=== PATIENT | female | born 1985 | race American Indian/Alaskan Native ===

== ENCOUNTER 2016-11-25 15:08 | Emergency (ER) | payer SELFPAY ==
[2016-11-25 16:49] LABS: Bilirubin,Urine NEG (Negative); Blood,Urine NEG (Negative); Ketones,Urine NEG (Negative); Leukocyte Esterase,Urine NEG (Negative); Mucus,Urine 2+ /HPF; Nitrite,Urine NEG (Negative); Protein,Urine <15 mg/dL mg/dL (Negative); RBC,Urine < 1.0 /HPF (0.0-6.0); Urobilinogen,Urine < 2.0 mg/dL (<2.0)
[2016-11-25 16:52] LABS: Basophils % (Auto) 0.7 % (0.0-1.8); Eosinophils % (Auto) 1.2 % (0.0-4.3); Hemoglobin 13.6 gm/dl (10.1-14.3); Mean Corpuscular HGB Conc 33 % (30-34); Mean Corpuscular Hemoglobin 30 pg (28-32); Mean Corpuscular Volume 89 fl (79-97); Platelet Count 217 K/mm3 (140-440); Red Blood Count 4.62 M/mm3 (3.65-5.03); Red Cell Distribution Width 12.7 % (13.2-15.2); White Blood Count 9.5 K/mm3 (4.5-11.0)
[2016-11-25 16:53] LABS: Alanine Aminotransferase 14 units/L (7-56); Albumin 4.4 g/dL (3.9-5); Albumin/Globulin Ratio 1.4 %; Alkaline Phosphatase 58 units/L (35-129); Anion Gap 21 mmol/L; Blood Urea Nitrogen 14 mg/dL (7-17); Calcium 9.4 mg/dL (8.4-10.2); Carbon Dioxide 22 mmol/L (22-30); Chloride 100.2 mmol/L (98-107); Glucose 86 mg/dL (65-100); Lipase 25 units/L (13-60); Potassium 3.8 mmol/L (3.6-5.0); Sodium 139 mmol/L (137-145); Total Protein 7.5 g/dL (6.3-8.2)
--- NOTE | 2016-11-25 19:49 | Emergency Department Report ---
HPI - General Chief Complaint: Abdominal Pain Time Seen by Provider: 11/25/16 19:19 - HPI HPI: 31-year-old female presents to the ED complaining of right lower sided abdominal pain U 1 day. Patient states that yesterday she started to feel vaginal sharp, throbbing pain on her right lower abdomen. Patient states she had one episode of vomiting yesterday. Patient describes the pain as nonradiating low-cholesterol right lower quadrant. Patient states she is able to eat appropriately and drinking fluids with no problems. She denies fever assess shows sinus nausea/vaginal bleeding, vaginal discharge, dysuria, diarrhea or constipation ED Past Medical Hx - Past Medical History Previous Medical History?: Yes - Surgical History Past Surgical History?: Yes Hx Cholecystectomy: Yes Additional Surgical History: - Social History Smoking Status: Never Smoker Substance Use Type: None - Medications Home Medications: Home Medications Medication Instructions Recorded Confirmed Last Taken Type HYDROcodone/APAP 5-325 [[place] 1 each PO Q6HR PRN #12 tablet 11/25/16 Unknown Rx 5/325] Ibuprofen [Motrin] 800 mg PO Q8HR PRN #30 tablet 11/25/16 Unknown Rx ED Review of Systems ROS: Stated complaint: ABD PAIN Other details as noted in HPI Constitutional: denies: chills, fever Eyes: denies: eye pain, eye discharge, vision change ENT: denies: ear pain, throat pain Respiratory: denies: cough, shortness of breath, wheezing Cardiovascular: denies: chest pain, palpitations Endocrine: no symptoms reported Gastrointestinal: abdominal pain, vomiting. denies: nausea, diarrhea, constipation, hematemesis, hematochezia Genitourinary: denies: urgency, dysuria, discharge Musculoskeletal: denies: back pain, joint swelling, arthralgia Skin: denies: rash, lesions, pruritus Neurological: denies: headache, weakness, numbness, paresthesias, confusion, abnormal gait Psychiatric: denies: anxiety, depression Hematological/Lymphatic: denies: easy bleeding, easy bruising Physical Exam - Physical Exam Vital Signs: Vital Signs 11/25/16 11/25/16 11/25/16 15:47 17:35 18:33 Temperature 98.6 F 99 F 98.4 F Pulse Rate 83 83 85 Respiratory 16 18 18 Rate Blood Pressure 120/80 Blood Pressure 149/100 109/71 [Left] O2 Sat by Pulse 100 100 98 Oximetry Physical Exam: GENERAL: Alert and oriented x3, no apparent distress, Normal Gait, atraumatic. HEAD: Head is normocephalic and a-traumatic. MOUTH:Mouth is well hydrated and without lesions. Tonsils nonerythematous or swollen, Uvula midline, Tongue not elevated. Mucous membranes are moist. Posterior pharynx clear, no exudate or lesions. Patent airways. NECK: Supple. Non edematous, No lymphadenopathy or thyromegaly. No C-spine tenderness LUNGS: Symetrical with respiration, No wheezing, no rales or crackles, CTAB. HEART: S1, S2 present, regular rate and rhythm without murmur, no rubs, no gallops. Non tender to palpation ABDOMEN: No organomegaly was noted,Positive bowel sounds, soft, and non- distended. Tenderness to palpation of the right lower quadrant, BACK: Full range of motion, no spinal tenderness, nontender to palpation. NEUROLOGIC: The patient is cooperative with no focal neurologic deficits. Cranial nerves II through XII are grossly intact. PSYCHIATRIC: Mood is congruent with affect, denies suicidal or homicidal ideations. SKIN: Warm and dry, No lesions, No ulceration or induration present. ED Course Vital Signs 11/25/16 11/25/16 11/25/16 15:47 17:35 18:33 Temperature 98.6 F 99 F 98.4 F Pulse Rate 83 83 85 Respiratory 16 18 18 Rate Blood Pressure 120/80 Blood Pressure 149/100 109/71 [Left] O2 Sat by Pulse 100 100 98 Oximetry ED Medical Decision Making - Lab Data Result diagrams: 11/25/16 16:19 11/25/16 16:19 Laboratory Last Values WBC 9.5 K/mm3 (4.5-11.0) 11/25/16 16:19 RBC 4.62 M/mm3 (3.65-5.03) 11/25/16 16:19 Hgb 13.6 gm/dl (10.1-14.3) 11/25/16 16:19 Hct 41.0 % (30.3-42.9) 11/25/16 16:19 MCV 89 fl (79-97) 11/25/16 16:19 MCH 30 pg (28-32) 11/25/16 16:19 MCHC 33 % (30-34) 11/25/16 16:19 RDW 12.7 % (13.2-15.2) L 11/25/16 16:19 Plt Count 217 K/mm3 (140-440) 11/25/16 16:19 Lymph % (Auto) 15.5 % (13.4-35.0) 11/25/16 16:19 [place] % (Auto) 9.9 % (0.0-7.3) H 11/25/16 16:19 Eos % (Auto) 1.2 % (0.0-4.3) 11/25/16 16:19 Baso % (Auto) 0.7 % (0.0-1.8) 11/25/16 16:19 Lymph # 1.5 K/mm3 (1.2-5.4) 11/25/16 16:19 [place] # 0.9 K/mm3 (0.0-0.8) H 11/25/16 16:19 Eos # 0.1 K/mm3 (0.0-0.4) 11/25/16 16:19 Baso # 0.1 K/mm3 (0.0-0.1) 11/25/16 16:19 Seg Neutrophils % 72.7 % (40.0-70.0) H 11/25/16 16:19 Seg Neutrophils # 6.9 K/mm3 (1.8-7.7) 11/25/16 16:19 Sodium 139 mmol/L (137-145) 11/25/16 16:19 Potassium 3.8 mmol/L (3.6-5.0) 11/25/16 16:19 Chloride 100.2 mmol/L (98-107) 11/25/16 16:19 Carbon Dioxide 22 mmol/L (22-30) 11/25/16 16:19 Anion Gap 21 mmol/L 11/25/16 16:19 BUN 14 mg/dL (7-17) 11/25/16 16:19 Creatinine 0.7 mg/dL (0.7-1.2) 11/25/16 16:19 Estimated GFR > 60 ml/min 11/25/16 16:19 BUN/Creatinine Ratio 20.00 % 11/25/16 16:19 Glucose 86 mg/dL (65-100) 11/25/16 16:19 Calcium 9.4 mg/dL (8.4-10.2) 11/25/16 16:19 Total Bilirubin 0.70 mg/dL (0.1-1.2) 11/25/16 16:19 AST 13 units/L (5-40) 11/25/16 16:19 ALT 14 units/L (7-56) 11/25/16 16:19 Alkaline Phosphatase 58 units/L (35-129) 11/25/16 16:19 Total Protein 7.5 g/dL (6.3-8.2) 11/25/16 16:19 Albumin 4.4 g/dL (3.9-5) 11/25/16 16:19 Albumin/Globulin Ratio 1.4 % 11/25/16 16:19 Lipase 25 units/L (13-60) 11/25/16 16:19 HCG, Qual Negative (Negative) 11/25/16 16:19 Urine Color Yellow (Yellow) 11/25/16 Unknown Urine Turbidity Clear (Clear) 11/25/16 Unknown Urine pH 6.0 (5.0-7.0) 11/25/16 Unknown Ur Specific [place] 1.027 (1.003-1.030) 11/25/16 Unknown Urine Protein <15 mg/dl mg/dL (Negative) 11/25/16 Unknown Urine Glucose (UA) Neg mg/dL (Negative) 11/25/16 Unknown Urine Ketones Neg mg/dL (Negative) 11/25/16 Unknown Urine Blood Neg (Negative) 11/25/16 Unknown Urine Nitrite Neg (Negative) 11/25/16 Unknown Urine Bilirubin Neg (Negative) 11/25/16 Unknown Urine Urobilinogen < 2.0 mg/dL (<2.0) 11/25/16 Unknown Ur Leukocyte Esterase Neg (Negative) 11/25/16 Unknown Urine WBC (Auto) 1.0 /HPF (0.0-6.0) 11/25/16 Unknown Urine RBC (Auto) < 1.0 /HPF (0.0-6.0) 11/25/16 Unknown Urine Mucus 2+ /HPF 11/25/16 Unknown - Radiology Data Radiology results: report reviewed, image reviewed FINAL REPORT EXAM: CT ABDOMEN PELVIS WO CON HISTORY: rlq abd pain . TECHNIQUE: CT of the abdomen and pelvis without contrast. Coronal and sagittal reformatted images were submitted. PRIORS: None. FINDINGS: The lung bases are clear. The liver, spleen, adrenal glands and pancreas are unremarkable. The gallbladder is absent. No biliary duct dilatation is seen. The kidneys are normal in size and contour. A few tiny calculi are seen in the upper poles of the kidneys. There is no hydronephrosis. The aorta is normal in caliber. There is a broad-based ventral hernia containing colon. There is no evidence of free-fluid or free-air. No significant bowel thickening or dilatation is seen. The appendix is prominent measuring 9 millimeters. No inflammatory changes are seen. The uterus and ovaries are identified. The bladder is partially distended. The osseous structures are intact. IMPRESSION: Tiny nonobstructing bilateral renal calculi. Prominent appendix measuring 9 millimeters without inflammatory changes. Transcribed By: CHRIS Dictated By: MARICHUY PAREDES MD Electronically Authenticated By: MARICHUY PAREDES MD Signed Date/Time: 11/25/162056 - Medical Decision Making 31-year-old female presents with abdominal pain/nonobstructing renal stones ED course: Patient given 1 tablet of not going ED CBC, CMP, test, urinalysis, abdomen CT and all ordered All labs within normal limits. CT of the abdomen and pelvis shows bilateral kidney stones nonobstructing, see above Discussed all findings with the patient. Discussed the patient pain may be cause by ovarian cyst in the right ovary. Discussed CT scan may not have shown ovarian cyst. Discussed follow-up with [facility] for an ultrasound to further assess pelvic pain. Discussed with patient took medication as prescribed if symptoms worsen to return to ED. Patient states she has a [facility] doctor and she would make an appointment and during the week to go to their office Discussed patient to follow up with primary care physician. Discussed referrals for manager people to follow-up signs vital signs are normal patient is in no acute distress Critical care attestation.: If time is entered above; I have spent that time in minutes in the direct care of this critically ill patient, excluding procedure time. ED Disposition Clinical Impression: Renal calculus, bilateral Abdominal pain Qualifiers: Abdominal location: right lower quadrant Qualified Code(s): R10.31 - Right lower quadrant pain Disposition: -01 TO HOME OR SELFCARE Is pt being admited?: No Does the pt Need Aspirin: No Condition: Stable Instructions: Kidney Stones (ED), Abdominal Pain (ED), Flank Pain (ED) Additional Instructions: If worsening symptoms return to ED otherwise follow-up with referral Follow-up with her primary care physician as well Prescriptions: HYDROcodone/APAP 5-325 [[place] 5/325] 1 each PO Q6HR PRN #12 tablet PRN Reason: Pain Ibuprofen [Motrin] 800 mg PO Q8HR PRN #30 tablet PRN Reason: Pain Referrals: WINIFRED YOUNGBLOOD MD [Referring] - 3-5 Days [facility], [Primary Care Provider] - 3-5 Days HRARISON CASTILLO MD, PHD [Referring] - 3-5 Days JESSICA SANZ MD [Staff Physician] - 3-5 Days [facility] [place] - 3-5 Days [facility] [Outside] - 3-5 Days Forms: Accompanied Note, Work/School Release Form(ED) Time of Disposition: 21:32
[2016-11-25] MEDS ORDERED: NORCO 5/325 PO ONE (19:54)
--- NOTE | 2016-11-25 20:59 | Cat Scan Report ---
FINAL REPORT EXAM: CT ABDOMEN PELVIS WO CON HISTORY: rlq abd pain . TECHNIQUE: CT of the abdomen and pelvis without contrast. Coronal and sagittal reformatted images were submitted. PRIORS: None. FINDINGS: The lung bases are clear. The liver, spleen, adrenal glands and pancreas are unremarkable. The gallbladder is absent. No biliary duct dilatation is seen. The kidneys are normal in size and contour. A few tiny calculi are seen in the upper poles of the kidneys. There is no hydronephrosis. The aorta is normal in caliber. There is a broad-based ventral hernia containing colon. There is no evidence of free-fluid or free-air. No significant bowel thickening or dilatation is seen. The appendix is prominent measuring 9 millimeters. No inflammatory changes are seen. The uterus and ovaries are identified. The bladder is partially distended. The osseous structures are intact. IMPRESSION: Tiny nonobstructing bilateral renal calculi. Prominent appendix measuring 9 millimeters without inflammatory changes.
[2016-11-25 21:06] VITALS: BP 109/70
== END 2016-11-25 21:49 | disposition home or self-care (01) ==
LOC: ED 15:08
DX: N20.0 Calculus of kidney (principal); R10.31 Right lower quadrant pain; Z90.49 Acquired absence of other specified parts of digestive tract; Z98.890 Other specified postprocedural states
CPT/HCPCS: 36415; 74176; 80053; 81001; 83690; 84703; 85025

== ENCOUNTER 2017-12-09 16:10 | Emergency (ER) | payer SELFPAY ==
[2017-12-09] MEDS ORDERED: NACL 0.9% 1000 ML 1,000 ML IV ONE ×2 (16:25→19:00)
[2017-12-09 17:37] LABS: Hematocrit 37.3 % (30.3-42.9); Hemoglobin 12.6 gm/dl (10.1-14.3); Mean Corpuscular HGB Conc 34 % (30-34); Mean Corpuscular Hemoglobin 31 pg (28-32); Mean Corpuscular Volume 92 fl (79-97); Platelet Count 194 K/mm3 (140-440); Red Blood Count 4.08 M/mm3 (3.65-5.03); Red Cell Distribution Width 12.5 % (13.2-15.2)
[2017-12-09 17:47] LABS: HCG Qualitative,Urine Negative (Negative)
[2017-12-09 17:50] LABS: Bilirubin,Urine NEG (Negative); Blood,Urine NEG (Negative); Color,Urine Yellow (Yellow); Mucus,Urine 3+ /HPF; Urobilinogen,Urine < 2.0 mg/dL (<2.0)
[2017-12-09 17:51] LABS: Protein,Urine >500 mg/dL (Negative)
[2017-12-09 17:56] LABS: Alanine Aminotransferase 17 units/L (7-56); Albumin 4.4 g/dL (3.9-5); BUN/Creatinine Ratio 16; Blood Urea Nitrogen 11 mg/dL (7-17); Calcium 9.4 mg/dL (8.4-10.2); Hemolysis Index 4; Lipase 15 units/L (13-60)
[2017-12-09 18:27] LABS: Basophils % (Manual) 0 % (0.0-1.8); Eosinophils % (Manual) 0 % (0.0-4.3); Platelet Estimate Consistent w Auto; RBC Morphology Normal; Total Cells Counted 100
[2017-12-09] MEDS ORDERED: ZOFRAN IV ONE (19:01)
[2017-12-09] MEDS ORDERED: TORADOL IV ONE (19:01)
--- NOTE | 2017-12-09 19:06 | Emergency Department Report ---
ED General Adult HPI - General Chief complaint: Abdominal Pain Stated complaint: BODY PAIN/NAUSEA/VOMITING Time Seen by Provider: 12/09/17 18:32 Source: patient Mode of arrival: Ambulatory Limitations: No Limitations - History of Present Illness Initial comments: Patient presents to the ED with the chief complaint of nausea, vomiting, diarrhea that started last night. Patient states she's had abdominal pain related to the vomiting. She denies fever, chest pain, shortness of breath. -: Sudden Location: abdomen (cramping) Radiation: non-radiation Severity scale (0 -10): 2 Consistency: constant Improves with: none Worsens with: none Associated Symptoms: denies other symptoms Treatments Prior to Arrival: none - Related Data Previous Rx's Medication Instructions Recorded Last Taken Type HYDROcodone/APAP 5-325 [[place] 1 each PO Q6HR PRN #12 tablet 11/25/16 Unknown Rx 5/325] Ibuprofen [Motrin] 800 mg PO Q8HR PRN #30 tablet 11/25/16 Unknown Rx Ondansetron [Zofran Odt] 4 mg PO Q6HR PRN #20 tab.rapdis 12/09/17 Unknown Rx Promethazine [Phenergan TAB] 25 mg PO Q6HR PRN #20 tab 12/09/17 Unknown Rx traMADol [Ultram] 50 mg PO Q6HR PRN #20 tablet 12/09/17 Unknown Rx Allergies Allergy/AdvReac Type Severity Reaction Status Date / Time No Known Allergies Allergy Unverified 01/10/16 13:16 ED Review of Systems ROS: Stated complaint: BODY PAIN/NAUSEA/VOMITING Other details as noted in HPI Comment: All other systems reviewed and negative Constitutional: denies: chills, fever Eyes: denies: eye pain, eye discharge, vision change ENT: denies: ear pain, throat pain Respiratory: denies: cough, shortness of breath, wheezing Cardiovascular: denies: chest pain, palpitations Endocrine: no symptoms reported Gastrointestinal: denies: abdominal pain, nausea, diarrhea Genitourinary: denies: urgency, dysuria, discharge Musculoskeletal: denies: back pain, joint swelling, arthralgia Skin: denies: rash, lesions Neurological: denies: headache, weakness, paresthesias Psychiatric: denies: anxiety, depression Hematological/Lymphatic: denies: easy bleeding, easy bruising ED Past Medical Hx - Past Medical History Previous Medical History?: No - Surgical History Hx Cholecystectomy: Yes Additional Surgical History: - Social History Smoking Status: Current Every Day Smoker Substance Use Type: None - Medications Home Medications: Home Medications Medication Instructions Recorded Confirmed Last Taken Type HYDROcodone/APAP 5-325 [[place] 1 each PO Q6HR PRN #12 tablet 11/25/16 Unknown Rx 5/325] Ibuprofen [Motrin] 800 mg PO Q8HR PRN #30 tablet 11/25/16 Unknown Rx Ondansetron [Zofran Odt] 4 mg PO Q6HR PRN #20 tab.rapdis 12/09/17 Unknown Rx Promethazine [Phenergan TAB] 25 mg PO Q6HR PRN #20 tab 12/09/17 Unknown Rx traMADol [Ultram] 50 mg PO Q6HR PRN #20 tablet 12/09/17 Unknown Rx ED Physical Exam - General Limitations: No Limitations General appearance: alert, in no apparent distress - Head Head exam: Present: atraumatic, normocephalic - Eye Eye exam: Present: normal appearance, PERRL, EOMI - ENT ENT exam: Present: other (dry mucous membranes ) - Neck Neck exam: Present: normal inspection - Respiratory Respiratory exam: Present: normal lung sounds bilaterally. Absent: respiratory distress, wheezes, rales, rhonchi - Cardiovascular Cardiovascular Exam: Present: regular rate, normal rhythm. Absent: systolic murmur, diastolic murmur, rubs, gallop - GI/Abdominal GI/Abdominal exam: Present: soft, normal bowel sounds. Absent: distended, tenderness - Extremities Exam Extremities exam: Present: normal inspection - Back Exam Back exam: Present: normal inspection - Neurological Exam Neurological exam: Present: alert, oriented X3, CN II-XII intact. Absent: motor sensory deficit - Psychiatric Psychiatric exam: Present: normal affect, normal mood - Skin Skin exam: Present: warm, dry, intact, normal color. Absent: rash ED Course Vital Signs 12/09/17 12/09/17 16:22 19:49 Temperature 99.4 F Pulse Rate 71 Respiratory 18 16 Rate Blood Pressure 103/56 O2 Sat by Pulse 100 Oximetry ED Medical Decision Making - Lab Data Result diagrams: 12/09/17 17:08 12/09/17 17:08 - Medical Decision Making Patient received IV fluids, Toradol, Zofran with relief of her symptoms Elevated white count likely secondary to acute stress reaction Critical care attestation.: If time is entered above; I have spent that time in minutes in the direct care of this critically ill patient, excluding procedure time. ED Disposition Clinical Impression: Nausea & vomiting, Diarrhea Disposition: TO HOME OR SELFCARE Is pt being admited?: No Does the pt Need Aspirin: No Condition: Stable Instructions: Acute Nausea and Vomiting (ED), Acute Diarrhea (ED) Additional Instructions: return if worse Prescriptions: Ondansetron [Zofran Odt] 4 mg PO Q6HR PRN #20 tab.rapdis PRN Reason: Nausea Promethazine [Phenergan TAB] 25 mg PO Q6HR PRN #20 tab PRN Reason: Nausea traMADol [Ultram] 50 mg PO Q6HR PRN #20 tablet PRN Reason: Pain Referrals: PRIMARY CAREMD [Primary Care Provider] - 3-5 Days BALJEET BUENROSTRO MD [Staff Physician] - 3-5 Days [facility] [Provider Group] - 3-5 Days Time of Disposition: 20:17
[2017-12-09 22:17] VITALS: BP 110/60
== END 2017-12-09 22:38 | disposition home or self-care (01) ==
LOC: ED 16:10
DX: R11.2 Nausea with vomiting, unspecified (principal); R19.7 Diarrhea, unspecified; R10.9 Unspecified abdominal pain; F17.200 Nicotine dependence, unspecified, uncomplicated; Z79.899 Other long term (current) drug therapy; Z90.49 Acquired absence of other specified parts of digestive tract
CPT/HCPCS: 36415; 80053; 81001; 81025; 83690; 85007; 85025; 96361; 96374; 96375; 99283; J1885; J2405; J7030

== ENCOUNTER 2020-02-23 00:58 | Emergency (ER) | payer MEDICAID ==
[2020-02-23 09:14] VITALS: BP 133/77
--- NOTE | 2020-02-23 09:35 | Emergency Department Report ---
ED Neuro Deficit HPI - General Chief Complaint: Neuro Symptoms/Deficit Stated Complaint: LT SIDE SLIGHT PARALYZED Time Seen by Provider: 02/23/20 09:16 Source: patient Mode of arrival: Ambulatory Limitations: No Limitations - History of Present Illness Initial Comments: 34-year-old female presents to ED with left facial weakness x3 days. Patient unable to the lift corner of her mouth or completely close her eye on the left side. She denies any change in taste or hearing. She denies any extremity weakness or numbness. She denies any slurred speech. -: days(s) (3) Location: left face Presenting Symptoms: Present: Weak/Paralyzed One Side History of same: No Severity: mild Quality: weak Improves With: none Worsens With: none On Anticoagulants: No Associated Symptoms: denies: fever/chills - Related Data Home Medications: Previous Rx's Medication Instructions Recorded Last Taken Type HYDROcodone/APAP 5-325 [[place] 1 each PO Q6HR PRN #12 tablet 11/25/16 Unknown Rx 5/325] Ibuprofen [Motrin] 800 mg PO Q8HR PRN #30 tablet 11/25/16 Unknown Rx Ondansetron [Zofran Odt] 4 mg PO Q6HR PRN #20 tab.rapdis 12/09/17 Unknown Rx Promethazine [Phenergan TAB] 25 mg PO Q6HR PRN #20 tab 12/09/17 Unknown Rx traMADoL [Ultram] 50 mg PO Q6HR PRN #20 tablet 12/09/17 Unknown Rx predniSONE [Deltasone] 50 mg PO QDAY 7 Days #7 tab 02/23/20 Unknown Rx valACYclovir [Valtrex] 500 mg PO BID 5 Days #10 tab 02/23/20 Unknown Rx Allergies/Adverse Reactions: Allergies Allergy/AdvReac Type Severity Reaction Status Date / Time No Known Allergies Allergy Unverified 01/10/16 13:16 ED Review of Systems ROS: Stated complaint: LT SIDE SLIGHT PARALYZED Other details as noted in HPI Comment: All other systems reviewed and negative Constitutional: denies: fever Neurological: as per HPI ED Past Medical Hx - Past Medical History Previous Medical History?: No - Surgical History Past Surgical History?: Yes Hx Cholecystectomy: Yes (2010) Additional Surgical History: - Social History Smoking Status: Never Smoker - Medications Home Medications: Home Medications Medication Instructions Recorded Confirmed Last Taken Type HYDROcodone/APAP 5-325 [[place] 1 each PO Q6HR PRN #12 tablet 11/25/16 Unknown Rx 5/325] Ibuprofen [Motrin] 800 mg PO Q8HR PRN #30 tablet 11/25/16 Unknown Rx Ondansetron [Zofran Odt] 4 mg PO Q6HR PRN #20 tab.rapdis 12/09/17 Unknown Rx Promethazine [Phenergan TAB] 25 mg PO Q6HR PRN #20 tab 12/09/17 Unknown Rx traMADoL [Ultram] 50 mg PO Q6HR PRN #20 tablet 12/09/17 Unknown Rx predniSONE [Deltasone] 50 mg PO QDAY 7 Days #7 tab 02/23/20 Unknown Rx valACYclovir [Valtrex] 500 mg PO BID 5 Days #10 tab 02/23/20 Unknown Rx ED Neuro Physical Exam - General Limitations: No Limitations General appearance: alert, in no apparent distress Suspected Stroke: No - Head Head exam: Present: atraumatic, normocephalic - Eye Eye exam: Present: normal appearance, EOMI - ENT ENT exam: Present: mucous membranes moist - Neck Neck exam: Present: normal inspection - Respiratory Respiratory exam: Present: normal lung sounds bilaterally. Absent: respiratory distress - Cardiovascular Cardiovascular Exam: Present: regular rate, normal rhythm - GI/Abdominal GI/Abdominal exam: Present: soft. Absent: distended, tenderness - Extremities Exam Extremities exam: Present: normal inspection - Neurological Exam Neurological exam: Present: alert, oriented X3, other (Left facial weakness on exam, unable to completely lift the left corner of her mouth, unable to close left eye completely, will to left left eyebrow completely) - NIHSS Assessment Interval: Baseline 1a. Level of Consciousness: alert/keenly responsive 1b. LOC Questions: answers both correctly 1c. LOC Commands: performs tasks correctly 2. Best Gaze: normal 3. Visual: no visual loss 4. Facial Palsy: minor paralysis 5b. Motor Arm Right: no drift 5a. Motor Arm Left: no drift 6a. Motor Leg Left: no drift 6b. Motor Leg Right: no drift 7. Limb Ataxia: absent 8. Sensory: normal 9. Best Language: no aphasia 10. Dysarthria: normal 11. Extinction/Inattention: no abnormality Total Score: 1 Stroke Severity: Minor Stroke - Psychiatric Psychiatric exam: Present: normal affect, normal mood - Skin Skin exam: Present: warm, dry, intact, normal color ED Course Vital Signs 02/23/20 02/23/20 04:23 09:11 Temperature 98.5 F 98.2 F Pulse Rate 70 69 Respiratory 20 12 Rate Blood Pressure 112/73 Blood Pressure 133/77 [Right] O2 Sat by Pulse 97 100 Oximetry - Medical Decision Making 34-year-old female presents to ED with left-sided Mancera's palsy. She has no neuro deficits of her extremities. Patient will be placed on Valtrex and prednisone. Outpatient follow-up advised. Return precautions given. - Differential Diagnosis Mancera's palsy Critical care attestation.: If time is entered above; I have spent that time in minutes in the direct care of this critically ill patient, excluding procedure time. ED Disposition Clinical Impression: Mancera's palsy Disposition: - TO HOME OR SELFCARE Is pt being admited?: No Condition: Stable Instructions: Mancera Palsy, Adult Prescriptions: predniSONE [Deltasone] 50 mg PO QDAY 7 Days #7 tab valACYclovir [Valtrex] 500 mg PO BID 5 Days #10 tab Referrals: NESS TREVIÑO MD [Primary Care Provider] - 3-5 Days [facility] [Provider Group] - 3-5 Days DIETER GRIMM MD [Referring] - 3-5 Days Forms: Accompanied Note, Work/School Release Form(ED) Time of Disposition: 09:37
== END 2020-02-23 09:59 | disposition home or self-care (01) ==
LOC: ED 00:58
DX: G51.0 Bell's palsy (principal); Z79.1 Long term (current) use of non-steroidal anti-inflammatories (NSAID); Z79.899 Other long term (current) drug therapy
CPT/HCPCS: 99282